=== PATIENT | female | born 1990 | race African-American/Black ===

== ENCOUNTER 2020-04-26 11:58 | Emergency (ER) | payer OTHER ==
[~2020-04-26] VITALS: Ht 170.2 cm; Wt 119.5 kg
[~2020-04-26 11:58] MED LIST: SERT20OR PO
[2020-04-26 12:37] LABS: BASO # 0.1 x10^3/uL (0.0-0.2); BASO % 1 % (0-3); EOS # 0.1 x10^3/uL (0.0-0.7); EOS % 3 % (0-3); HEMATOCRIT 31.7 % (36.0-47.0); HEMOGLOBIN 9.8 g/dL (12.0-15.5); LYMPH # 1.9 x10^3/uL (1.0-4.8); LYMPH % 43 % (24-48); MEAN CORPUSCULAR HEMOGLOBIN 20 pg (25-35); MEAN CORPUSCULAR HGB CONC 31 g/dL (31-37); MEAN CORPUSCULAR VOLUME 65 fL (79-100); MONO # 0.5 x10^3/uL (0.0-1.1); MONO % 10 % (0-9); NEUT # 1.9 x10^3uL (1.8-7.7); NEUT % 42 % (31-73); PLATELET COUNT 137 x10^3/uL (140-400); RED BLOOD COUNT 4.85 x10^6/uL (3.50-5.40); RED CELL DISTRIBUTION WIDTH 15.6 % (11.5-14.5); WHITE BLOOD COUNT 4.4 x10^3/uL (4.0-11.0)
--- NOTE | 2020-04-26 12:44 | EKG ---
[address] [address] Test Date: 2020-04-26 Test Time: 12:13:20 Pat Name: ARIEL NEWSOME Department: Room: Gender: F [employer]: : 1990 Requested By: ALEXEY ARRIOLA Order Number: [id number] Reading MD: Johnson Elizabeth Measurements Intervals [place] Rate: 85 P: 0 [place]: 114 QRS: 22 QRSD: 76 T: 13 QT: 358 QTc: 426 Interpretive Statements SINUS RHYTHM NORMAL ECG RI6.02 Compared to ECG 01/18/2014 09:56:12 No significant changes Electronically Signed On 04-28-2020 15:24:51 CDT by Johnson Elizabeth
[2020-04-26 12:45] LABS: CALCIUM 9.2 mg/dL (8.5-10.1); CREATININE 1.1 mg/dL (0.6-1.0); GFR 70.6; POTASSIUM 4.1 mmol/L (3.5-5.1)
[2020-04-26] MEDS ORDERED: ALPRAZolam 0.25 MG TABLET PO ONE (12:45)
--- NOTE | 2020-04-26 13:03 | RAD ---
CHEST PA LATERAL Clinical indications: Chest pain. COMPARISON: June 30, 2013. Findings: No acute lung infiltrate or pleural effusion or pulmonary edema or lung mass or pneumothorax is seen. The heart size, pulmonary vasculature, mediastinum and both leatha are unremarkable. Scoliosis is seen. Impression: No acute radiographic abnormality is seen. Electronically signed by: Andrew William MD (04/26/2020 1:00 PM) [id number]
[2020-04-26 13:30] VITALS: BP 145/72
--- NOTE | 2020-04-26 13:54 | PHYS DOC ---
Past History Past Medical History: Anxiety Past Surgical History: Gastric Bypass, Other Additional Past Surgical Histo: Legs Alcohol Use: Rarely Adult General Chief Complaint Chief Complaint: CHEST WALL PAIN HPI HPI Patient is a 29 year old female who presents with bilateral chest tightness. Patient took a new weight loss pill this morning and then forgot she took it and drink some coffee. She has a history of caffeine sensitivity. She also has a history of anxiety. She states this feels somewhat like her previous anxiety. She denies shortness of breath, cough, diaphoresis, nausea. She has had gastric bypass. Review of Systems Review of Systems General: Denies fever, chills, sweats, fatigue Eyes: Denies drainage, blurred vision HENT: Denies rhinorrhea, sore throat Respiratory: Denies cough, shortness of breath, wheezing Cardiac: Denies edema, palpitations, chest pain GI: Denies abdominal pain, N/V MSK: Denies back pain.reports neck pain Skin: Denies rash, jaundice Neuro: Denies headache, dizziness Psychiatric: Denies SI/HI Current Medications Current Medications Current Medications Medications (Trade) Dose Ordered Sig/Franci Start Time Stop Time Status Last Admin Dose Admin Alprazolam (Xanax) 0.5 mg 1X ONCE 04/26/20 12:45 04/26/20 12:46 DC 04/26/20 12:53 0.5 MG Allergies Allergies Allergies Coded Allergies Type Severity Reaction Last Updated Verified No Known Drug Allergies 02/17/14 No Physical Exam Physical Exam Constitutional: Well developed, well nourished, Cooperative, NAD, non-toxic appearing HEENT: Normocephalic, atraumatic, oropharynx moist, EOMI, PERRL, no drainage from eyes, normal conjunctiva Neck: Supple, normal range of motion, no stridor Cardiovascular: RRR, 2+ radial pulses bilaterally, no edema Respiratory: CTA bilaterally, no respiratory distress, no wheezing/crackles Abdomen: Soft, nontender, nondistended, no masses Skin: Warm, dry, intact Extremities: No obvious deformities Neurologic: Alert and Oriented x3, motor and sensory function grossly normal, no focal deficits Psychologic: Normal affect, normal judgment, normal mood. No SI/HI Current Patient Data Vital Signs Vital Signs Date Time Temp Pulse Resp B/P (MAP) Pulse Ox O2 Delivery O2 Flow Rate FiO2 04/26/20 13:30 79 16 145/72 (96) 98 Room Air 04/26/20 12:05 98.0 Lab Results Laboratory Tests Test 04/26/20 12:20 04/26/20 13:25 White Blood Count 4.4 x10^3/uL (4.0-11.0) Red Blood Count 4.85 x10^6/uL (3.50-5.40) Hemoglobin 9.8 g/dL (12.0-15.5) L Hematocrit 31.7 % (36.0-47.0) L Mean Corpuscular Volume 65 fL (79-100) L Mean Corpuscular Hemoglobin 20 pg (25-35) L Mean Corpuscular Hemoglobin Concent 31 g/dL (31-37) Red Cell Distribution Width 15.6 % (11.5-14.5) H Platelet Count 137 x10^3/uL (140-400) L Neutrophils (%) (Auto) 42 % (31-73) Lymphocytes (%) (Auto) 43 % (24-48) Monocytes (%) (Auto) 10 % (0-9) H Eosinophils (%) (Auto) 3 % (0-3) Basophils (%) (Auto) 1 % (0-3) Neutrophils # (Auto) 1.9 x10^3uL (1.8-7.7) Lymphocytes # (Auto) 1.9 x10^3/uL (1.0-4.8) Monocytes # (Auto) 0.5 x10^3/uL (0.0-1.1) Eosinophils # (Auto) 0.1 x10^3/uL (0.0-0.7) Basophils # (Auto) 0.1 x10^3/uL (0.0-0.2) Platelet Estimate Pending Sodium Level 141 mmol/L (136-145) Potassium Level 4.1 mmol/L (3.5-5.1) Chloride Level 105 mmol/L (98-107) Carbon Dioxide Level 27 mmol/L (21-32) Anion Gap 9 (6-14) Blood Urea Nitrogen 7 mg/dL (7-20) Creatinine 1.1 mg/dL (0.6-1.0) H Estimated GFR (Cockcroft-Gault) 70.6 Glucose Level 91 mg/dL (70-99) Calcium Level 9.2 mg/dL (8.5-10.1) Troponin I Quantitative < 0.017 ng/mL (0-0.055) POC Urine HCG, Qualitative hcg negative (Negative) EKG EKG [] Radiology/Procedures Radiology/Procedures [] Course & Med Decision Making Course & Med Decision Making Pertinent Labs and Imaging studies reviewed. (See chart for details) Patient is a 29-year-old female who presents to the emergency room complaining of chest tightness. It is likely that this is due to anxiety being exacerbated by a large amount of caffeine. Cardiac work-up was done including a CBC, BMP, troponin, chest x-ray, EKG which were normal. Patient was given her home Xanax which significantly improved her symptoms. patient's test results and vitals while in the ED were fully reviewed and discussed with the patient. Patient is stable and at this time does not need admission to the hospital. We have discussed strict return precautions and the importance of following up with their Primary Care Physician. Patient stated understanding and was given an opportunity to ask any questions. Dragon Disclaimer Dragon Disclaimer This electronic medical record was generated, in whole or in part, using a voice recognition dictation system. Departure Departure: Impression: Primary Impression: Caffeine adverse reaction Additional Impressions: Anxiety Chest pain Disposition: HOME/RESIDENCE PRIOR TO ADM Condition: STABLE Patient Instructions: Chest Pain (Nonspecific), [id number] Problem Qualifiers ALEXEY ARRIOLA MD Apr 26, 2020 13:53
[2020-04-26 15:41] LABS: PLT ESTIMATE ADEQUATE (ADEQUATE)
[2020-04-26 15:42] LABS: ANISOCYTOSIS PRESENT; HYPOCHROMIA PRESENT; MICROCYTOSIS PRESENT
[2020-04-26 15:43] LABS: OVALOCYTES PRESENT
== END 2020-04-26 13:40 | disposition home or self-care (01) ==
LOC: ER 11:58
DX: F41.9 Anxiety disorder, unspecified (principal); R07.89 Other chest pain; T43.615A Adverse effect of caffeine, initial encounter; Z98.84 Bariatric surgery status; Y92.89 Other specified places as the place of occurrence of the external cause
CPT/HCPCS: 36415; 71046; 80048; 81025; 84484; 85025; 93005; 99285